=== PATIENT | male | born 1980 | race Caucasian/White ===

== ENCOUNTER 2017-12-29 10:31 | Observation (INO) | payer OTHER ==
[~2017-12-29] VITALS: Ht 177.8 cm; Wt 90.7 kg
[2017-12-29 12:02] LABS: ABSOLUTE BASOPHIL COUNT 0 /CUMM (0.0-0.2); ABSOLUTE EOSINOPHIL COUNT 0.1 /CUMM (0.0-0.7); ABSOLUTE GRANULOCYTE CT 6.3 /CUMM (1.4-6.5); ABSOLUTE LYMPH COUNT 1.2 /CUMM (1.2-3.4); ABSOLUTE MONOCYTE COUNT 0.6 /CUMM (0.10-0.60); BASOPHIL % 0.1 % (0.0-2.0); GRANULOCYTE % 76.8 % (42.2-75.2); HEMATOCRIT 41.6 % (42-52); MEAN CORPUSCULAR HGB 30.4 PG (27.0-31.0); MEAN CORPUSCULAR HGB CONC 34.2 G/DL (33.0-37.0); MEAN CORPUSCULAR VOLUME 89.1 FL (80.0-94.0); PLATELET COUNT 195 /CUMM (130-400); RBC DISTRIBUTION WIDTH 12.9 % (11.5-14.5); RED BLOOD CELL CT 4.67 /CUMM (4.70-6.10); WHITE BLOOD CELL COUNT 8.1 /CUMM (4.8-10.8)
--- NOTE | 2017-12-29 12:27 | CT SCAN REPORT ---
EXAMINATION: CT ABDOMEN AND PELVIS WITHOUT CONTRAST CLINICAL INFORMATION: Right flank pain wrapping around to the abdomen. Evaluate for kidney stone. COMPARISON: None TECHNIQUE: Multidetector volumetric imaging was performed from the superior aspect of the liver through the pubic symphysis. Sagittal and coronal reformatted images were obtained on the technologist's workstation. DLP: 366 mGy-cm FINDINGS: LUNG BASES: The visualized lung bases are unremarkable. LIVER, GALLBLADDER, AND BILIARY TREE: The liver is normal in size, shape, and attenuation. No focal hepatic lesion or biliary ductal dilatation is present. The gallbladder is unremarkable with no evidence of radiopaque gallstones, gallbladder wall thickening, or obvious pericholecystic inflammatory changes. PANCREAS: Unremarkable. SPLEEN: Unremarkable. ADRENAL GLANDS: Unremarkable. KIDNEYS AND URETERS: The kidneys are normal in size, shape, and attenuation. No hydronephrosis, hydroureter, or calculi seen. No perinephric stranding. BLADDER: Unremarkable. GASTROINTESTINAL TRACT: The stomach is unremarkable. The small bowel is normal in caliber. There is no obstruction. The appendix is distended, measuring up to 1.2 cm in thickness. There is prominent adjacent inflammation. No free air or fluid collection. ABDOMINAL WALL: No significant hernia is appreciated. LYMPH NODES: Normal. VASCULAR: Unremarkable. PELVIC VISCERA: The prostate and seminal vesicles are unremarkable. OSSEOUS STRUCTURES: No acute or suspicious osseous abnormality. Mild multilevel degenerative changes of the spine. IMPRESSION: Acute appendicitis. No free air or fluid collection. No hydronephrosis or nephrolithiasis. This critical result was discussed with YANIRA Hugo by telephone at 12/29/2017 12:23 PM and it was ascertained that the content and urgency of the report was understood at the time of direct communication.
[2017-12-29 12:49] LABS: PT 12.4 SEC (9.4-12.5); PTT 29 SEC (25-37)
--- NOTE | 2017-12-29 13:34 | ED GI/GU/ABDOMINAL COMPLAINT ---
History of Present Illness General Chief Complaint: Abdominal Pain/Flank Pain Stated Complaint: ABD PAIN Source: patient Exam Limitations: no limitations Vital Signs & Intake/Output Vital Signs & Intake/Output Vital Signs Date Time Temp Pulse Resp B/P B/P Pulse O2 O2 Flow FiO2 Mean Ox Delivery Rate 12/29 1412 99.2 96 21 137/92 98 Room Air Room Air 12/29 1120 98 Room Air Room Air 12/29 1031 98.7 104 18 151/92 98 Room Air Room Air Allergies Coded Allergies: No Known Allergies (07/03/16) Reconcile Medications Sertraline HCl 50 MG TABLET 1 TAB PO QHS DEPRESSION (Reported) Triage Note: PT TO ED WITH C/O RIGHT FLANK PAIN SINCE THURSDAY, ? KIDNEY STONE, "I DON'T HAVE ANY HISTORY OF KIDNEY STONES, BUT I HAVE BEEN DRINKING ALOT OF WATER, TAKING IBUPROFEN 800MG FOR THE PAIN". Triage Nurses Notes Reviewed? yes Onset: Abrupt Duration: day(s): Timing: recent history Quality/Severity: moderate, sharpness Location: generalized abdomen Radiation: no radiation Activities at Onset: none Prior Abdominal Problems: none No Modifying Factors: none HPI: 37-year-old male comes into the emergency room with right-sided abdominal pain and right-sided flank pain. Symptoms began about 5 days ago. Pain wraps around to the right side of his abdomen from his back. Denies any vomiting but has a low-grade fever that he admits to. Denies any fever chills. Denies any vomiting. Denies any other system symptoms. Comes in for further evaluation. Past History Travel History Traveled to [place] past 21 day No Medical History Any Pertinent Medical History? see below for history Neurological: NONE EENT: NONE Cardiovascular: NONE Respiratory: NONE Gastrointestinal: NONE Hepatic: NONE Renal: NONE Musculoskeletal: NONE Psychiatric: depression Endocrine: NONE Blood Disorders: NONE Cancer(s): NONE LAUNDRY AID/Reproductive: NONE Surgical History Surgical History: right upper premolar drilled Psychosocial History What is your primary language Ukrainian Tobacco Use: Never used ETOH Use: occasional use Illicit Drug Use: denies illicit drug use Family History Hx Contributory? No Review of Systems Review of Systems Constitutional: Reports: no symptoms. EENTM: Reports: no symptoms. Respiratory: Reports: no symptoms. Cardiovascular: Reports: no symptoms. GI: Reports: see HPI. Genitourinary: Reports: see HPI. Musculoskeletal: Reports: no symptoms. Skin: Reports: no symptoms. Neurological/Psychological: Reports: no symptoms. Hematologic/Endocrine: Reports: no symptoms. Immunologic/Allergic: Reports: no symptoms. All Other Systems: Reviewed and Negative Physical Exam Physical Exam General Appearance: well developed/nourished, no apparent distress, alert, awake Head: atraumatic, normal appearance Eyes: Bilateral: normal appearance. Ears, Nose, Throat, Mouth: hearing grossly normal, moist mucous membrane Neck: normal inspection Respiratory: normal breath sounds, no respiratory distress Cardiovascular: regular rate/rhythm Gastrointestinal: soft, tenderness Back: normal inspection Extremities: normal range of motion Neurologic/Psych: awake, alert, oriented x 3 Skin: intact, normal color Core Measures ACS in differential dx? No Sepsis Present: No Sepsis Focused Exam Completed? No Progress Differential Diagnosis: appendicitis, cholecystitis, diverticulitis, ureterolithiasis, UTI/pyelo Plan of Care: Orders Procedure Date/time Status TYPE & SCREEN (NOT X-MATCH) 12/29 1249 Complete Add-on Test (ER Only) 12/29 1232 Active PARTIAL THROMBOPLASTIN TIME 12/29 1136 Complete PROTHROMBIN TIME 12/29 1136 Complete COMPREHENSIVE METABOLIC PANEL 12/29 1119 Complete CBC WITHOUT DIFFERENTIAL 12/29 1119 Complete URINALYSIS 12/29 1042 Complete Laboratory Tests 12/29/17 1136: Anion Gap 10, Estimated GFR > 60, BUN/Creatinine Ratio 14.4, Glucose 91, Calcium 9.2, Total Bilirubin 0.7, AST 20, ALT 40, Alkaline Phosphatase 49, Total Protein 6.7, Albumin 3.7, Globulin 3.0, Albumin/Globulin Ratio 1.2, PT 12.4, INR 1.14, APTT 29, CBC w Diff NO MAN DIFF REQ, RBC 4.67 L, MCV 89.1, MCH 30.4, MCHC 34.2, RDW 12.9, MPV 10.0, Gran % 76.8 H, Lymphocytes % 14.8 L, Monocytes % 7.3, Eosinophils % 1.0, Basophils % 0.1, Absolute Granulocytes 6.3, Absolute Lymphocytes 1.2, Absolute Monocytes 0.6, Absolute Eosinophils 0.1, Absolute Basophils 0 12/29/17 1040: Urine Color YEL, Urine Clarity CLEAR, Urine pH 6.0, Ur Specific [place] 1.025, Urine Protein NEG, Urine Ketones NEG, Urine Nitrite NEG, Urine Bilirubin NEG, Urine Urobilinogen 0.2, Ur Leukocyte Esterase NEG, Ur Microscopic EXAM NOT REQUIRED, Urine Hemoglobin NEG, Urine Glucose NEG Diagnostic Imaging: Viewed by Me: CT Scan. Discussed w/RAD: CT Scan. Radiology Impression: PATIENT: DONNIE CELESTIN PRESENT AGE: 37 PATIENT ACCOUNT NO: [id number] : 80 LOCATION: [facility] ORDERING PHYSICIAN: Jarad DOYLE SERVICE DATE: 12/29/17 EXAM TYPE: CAT - CT ABD & PELVIS W/O IV CONTRAS EXAMINATION: CT ABDOMEN AND PELVIS WITHOUT CONTRAST CLINICAL INFORMATION: Right flank pain wrapping around to the abdomen. Evaluate for kidney stone. COMPARISON: None TECHNIQUE: Multidetector volumetric imaging was performed from the superior aspect of the liver through the pubic symphysis. Sagittal and coronal reformatted images were obtained on the technologist's workstation. DLP: 366 mGy-cm FINDINGS: LUNG BASES: The visualized lung bases are unremarkable. LIVER, GALLBLADDER, AND BILIARY TREE: The liver is normal in size, shape, and attenuation. No focal hepatic lesion or biliary ductal dilatation is present. The gallbladder is unremarkable with no evidence of radiopaque gallstones, gallbladder wall thickening, or obvious pericholecystic inflammatory changes. PANCREAS: Unremarkable. SPLEEN: Unremarkable. ADRENAL GLANDS: Unremarkable. KIDNEYS AND URETERS: The kidneys are normal in size, shape, and attenuation. No hydronephrosis, hydroureter, or calculi seen. No perinephric stranding. BLADDER: Unremarkable. GASTROINTESTINAL TRACT: The stomach is unremarkable. The small bowel is normal in caliber. There is no obstruction. The appendix is distended, measuring up to 1.2 cm in thickness. There is prominent adjacent inflammation. No free air or fluid collection. ABDOMINAL WALL: No significant hernia is appreciated. LYMPH NODES: Normal. VASCULAR: Unremarkable. PELVIC VISCERA: The prostate and seminal vesicles are unremarkable. OSSEOUS STRUCTURES: No acute or suspicious osseous abnormality. Mild multilevel degenerative changes of the spine. IMPRESSION: Acute appendicitis. No free air or fluid collection. No hydronephrosis or nephrolithiasis. This critical result was discussed with YANIRA Hugo by telephone at 12/29/2017 12:23 PM and it was ascertained that the content and urgency of the report was understood at the time of direct communication. DICTATED BY: Sammy Lama MD DATE/TIME DICTATED:12/29/171218 FINISHING MACHINE OPERATOR:CELI DATE/TIME TRANSCRIBED:12/29/171218 CONFIDENTIAL, DO NOT COPY WITHOUT APPROPRIATE AUTHORIZATION. <Electronically signed in Other Vendor System> SIGNED BY: Kelby CONN,Sammy 12/29/17 1227 Initial ED EKG: none Departure Departure Disposition: STILL A PATIENT Condition: Stable Clinical Impression Primary Impression: Acute appendicitis Referrals: Lennox CONN,Satish Siddiqui (PCP/Family) Departure Forms: Customer Survey General Discharge Information OR/GI Note Spoke With: Jayce CONN,Tac[place] N. ED Treatment Decision: DONNIE CELESTIN requires urgent operative management or an emergent procedure that cannot be performed in the Emergency Room setting. Transport To: [facility] Critical Care Note Critical Care Note Critical Care Time: 30-74 min (35)
[2017-12-29] MEDS ORDERED: SERTRALINE HCL50 MG PO (13:57)
--- NOTE | 2017-12-29 17:56 | History & Physical Pre-Op ---
General Information and HPI MD Statement: I have seen and personally examined DONNIE CELESTIN and documented this H&P. The patient is a 37 year old M who presented with a patient stated chief complaint of []. History of Present Illness: CC: abdominal pain HPI: 37-year-old nonsmoker nondiabetic on medication for some anxiety otherwise healthy 5 days ago mid afternoon started having some right lower quadrant pain he thought was a kidney stone like his brother had it persisted little bit of sweats no fevers little bit of nausea no vomiting no recent flulike symptoms or sore throat no family history of acute appendicitis patient's constant right lower quadrant no dysuria no hematuria doesn't radiate not worse on movement liters with analgesics. Otherwise no changes bowel habits, weight or appetite. I've reviewed the [facility]. No history of GERD, PUD, bleeding problems, heart disease or issues with anesthesia. Family history positive for depression hypertension hyperlipidemia Allergies/Medications Allergies: Coded Allergies: No Known Allergies (07/03/16) Home Med list Sertraline HCl 50 MG TABLET 1 TAB PO QHS DEPRESSION (Reported) Past History Medical History Neurological: NONE EENT: NONE Cardiovascular: NONE Respiratory: NONE Gastrointestinal: NONE Hepatic: NONE Renal: NONE Musculoskeletal: NONE Psychiatric: depression Endocrine: NONE Blood Disorders: NONE Cancer(s): NONE TELEVISION REPAIRER/Reproductive: NONE Surgical History Pertinent Surgical History: right upper premolar drilled Past Family/Social History Psychosocial History ETOH Use: occasional use Illicit Drug Use: denies illicit drug use Review of Systems Review of Systems: Constitutional: No fever, sweats or weight loss ENMT: No sore throat Cardiovascular: No chest pain, palpitations or leg swelling Respiratory: No shortness of breath, cough, or sputum or dyspnea on exertion GI: No GERD or bleeding per rectum : No dysuria or hematuria Musculoskeletal: No new muscle weakness, bone or joint pain Skin / Breast: No jaundice, rashes or itching Psychiatric: No history of drug or alcohol abuse no depression or anxiety Hematologic / lymphatic system: No problems with excessive bleeding, bruising, or blood clots Exam & Diagnostic Data Last 24 Hrs of Vital Signs/I&O I rev Vital Signs Date Time Temp Pulse Resp B/P B/P Pulse O2 O2 Flow FiO2 Mean Ox Delivery Rate 12/29 1632 98.9 95 20 141/82 96 Room Air Room Air 12/29 1412 99.2 96 21 137/92 98 Room Air Room Air 12/29 1120 98 Room Air Room Air 12/29 1031 98.7 104 18 151/92 98 Room Air Room Air I rev Intake & Output 12/29 1600 12/29 0800 12/29 0000 Intake Total 100 Output Total Balance 100 Intake, IV 100 Patient 200 lb Weight Weight Reported by Patient Measurement Method Physical Exam: Constitutional: pleasant, no acute distress, conversant Eyes: sclera anicteric ENMT: ears and nose atraumatic, moist mucous membranes, good dentition, no lip lesions Neck: Supple, trachea is midline, no cervical or supraclavicular adenopathy and no palpable thyromegaly Cardiovascular: S1, S2, no murmurs, no peripheral edema Respiratory: clear to auscultation with normal respiratory effort and no intercostal retractions GI: abdomen soft, McBurney's point tenderness, nondistended, no palpable hepatosplenomegaly Extremities / lymphatics: symmetrically warm, free range of motion no peripheral edema, no cervical, supraclavicular, axillary, or inguinal adenopathy Musculoskeletal: Did not evaluate gait and station, no digital cyanosis, good muscle strength and tone no atrophy, motor grossly 5 out of 5 throughout Skin: no jaundice, no rashes warm, nondiaphoretic, no areas of erythema or induration Psychiatric: mood and affect are appropriate and alert and oriented to person place and time Last 24 Hrs of Labs/Edy: I rev Laboratory Tests 12/29/17 1136: Anion Gap 10, Estimated GFR > 60, BUN/Creatinine Ratio 14.4, Glucose 91, Calcium 9.2, Total Bilirubin 0.7, AST 20, ALT 40, Alkaline Phosphatase 49, Total Protein 6.7, Albumin 3.7, Globulin 3.0, Albumin/Globulin Ratio 1.2, PT 12.4, INR 1.14, APTT 29, CBC w Diff NO MAN DIFF REQ, RBC 4.67 L, MCV 89.1, MCH 30.4, MCHC 34.2, RDW 12.9, MPV 10.0, Gran % 76.8 H, Lymphocytes % 14.8 L, Monocytes % 7.3, Eosinophils % 1.0, Basophils % 0.1, Absolute Granulocytes 6.3, Absolute Lymphocytes 1.2, Absolute Monocytes 0.6, Absolute Eosinophils 0.1, Absolute Basophils 0 12/29/17 1040: Urine Color YEL, Urine Clarity CLEAR, Urine pH 6.0, Ur Specific [place] 1.025, Urine Protein NEG, Urine Ketones NEG, Urine Nitrite NEG, Urine Bilirubin NEG, Urine Urobilinogen 0.2, Ur Leukocyte Esterase NEG, Ur Microscopic EXAM NOT REQUIRED, Urine Hemoglobin NEG, Urine Glucose NEG Assessment/Plan Assessment/Plan: I reviewed the CT scan on PACS myself there is inflammation in the right lower quadrant inferior to the cecum the appendix is not clearly demarcated entirely there is no free air. Impression is acute appendicitis. I explained to the patient that this is a potentially life-threatening infection for which I recommend an appendectomy. I feel antibiotics often alone are not enough and sometimes there is an occult malignancy. The severity of infection is related to the chance of perforation which usually increases after about 24 hours and he is presenting well past that it doesn't appear perforated clinically and on the imaging but it may be a walled off localized perf /phlegmon. Depending on what we find intraoperatively they may be discharged the same day or more likely in him may need to stay for more IV antibiotics, at depends. I also discussed the possibility of a postoperative infection whether superficial or deep, this is also related to the initial severity and may also appear even a week later after an initial interval of well-being during the recovery. I explained the operation we usually do it laparoscopically rarely converting to open, depending on the amount of inflammation and whether the anatomy is very unusual all to avoid inadvertent injury to surrounding surrounding structures such as bowel and blood vessels and ureter. We also discussed the potential risks, benefits and alternatives to the procedure and surgery in general, issues that included but were not limited to, anesthetic risks hemorrhage requiring transfusion, the risk of transfusion itself, infection, heart attack, stroke, . As Ranked By This Provider Problem List: 1. Acute appendicitis
[2017-12-29 22:21] VITALS: BP 140/80
--- NOTE | 2017-12-29 22:31 | PN- General Surgery ---
Subjective Subjective: POST-OP NOTE Reports slight nausea earlier. No pain at the moment. No dizziness. No shortness of breath. Hasn't voided yet post-op. Objective Vital Signs and I&Os Vital Signs Date Time Temp Pulse Resp B/P B/P Pulse O2 O2 Flow FiO2 Mean Ox Delivery Rate 12/291 98.1 87 18 140/80 99 12/29 1632 98.9 95 20 141/82 96 Room Air Room Air 12/29 1412 99.2 96 21 137/92 98 Room Air Room Air 12/29 1120 98 Room Air Room Air 12/29 1031 98.7 104 18 151/92 98 Room Air Room Air Intake & Output 12/29 1600 12/29 0800 12/29 0000 12/28 1600 12/28 0800 12/28 0000 Intake Total 100 Output Total Balance 100 Intake, IV 100 Patient 200 lb Weight Weight Reported by Patient Measurement Method Physical Exam: General - alert & oriented x 3. comfortable. no acute distress. Lungs - clear bilaterally. no w/r/r. Cardiac - s1s2. reg. Abdomen - soft. dressings c/d/i. Extremities - warm bilaterally. no c/c/e. calves soft and nontender b/l. Current Medications: Current Medications Sig/Jace Start time Last Medication Dose Route Stop Time Status Admin Acetaminophen 1,000 MG Q6H 12/29 2014 AC N/A 1 UNIT IV 12/30 1429 Ampicillin Sodium/ 3,000 MG Q6 12/29 2359 AC Sulbactam Sodium IV Sodium Chloride 100 ML Ampicillin Sodium/ 3,000 MG ONCE ONE 12/29 1245 DC 12/29 Sulbactam Sodium IV 12/29 1314 1300 Sodium Chloride 100 ML Ampicillin Sodium/ 0 .STK-MED ONE 12/29 1240 DC Sulbactam Sodium .ROUTE Dextrose/Sodium 1,000 ML Q10H 12/29 2014 AC 12/29 Chloride IV 2203 Heparin Sodium 5,000 UNIT Q8 12/30 0600 AC (Porcine) SC Ketorolac 0 .STK-MED ONE 12/29 1136 DC Tromethamine IM Ketorolac 60 MG ONCE ONE 12/29 1130 DC 12/29 Tromethamine IM 12/29 1131 1143 Morphine Sulfate 2 MG Q4-6 PRN PRN 12/29 2014 AC IV Ondansetron HCl 4 MG Q6P PRN 12/29 2014 AC IV Oxycodone HCl 5 MG Q4-6 PRN PRN 12/29 2014 AC PO Oxycodone HCl 10 MG Q4-6 PRN PRN 12/29 2014 AC PO Results Last 48 Hours of Labs: Laboratory Tests 12/29 12/29 1136 1040 Chemistry Sodium (137 - 145 mmol/L) 142 Potassium (3.5 - 5.1 mmol/L) 4.3 Chloride (98 - 107 mmol/L) 105 Carbon Dioxide (22 - 30 mmol/L) 28 Anion Gap (5 - 16) 10 BUN (9 - 20 mg/dL) 13 Creatinine (0.7 - 1.2 mg/dL) 0.9 Estimated GFR (>60 ml/min) > 60 BUN/Creatinine Ratio (7 - 25 %) 14.4 Glucose (65 - 99 mg/dL) 91 Calcium (8.4 - 10.2 mg/dL) 9.2 Total Bilirubin (0.2 - 1.3 mg/dL) 0.7 AST (17 - 59 U/L) 20 ALT (21 - 72 U/L) 40 Alkaline Phosphatase (< 127 U/L) 49 Total Protein (6.3 - 8.2 g/dL) 6.7 Albumin (3.5 - 5.0 g/dL) 3.7 Globulin (1.9 - 4.2 gm/dL) 3.0 Albumin/Globulin Ratio (1.1 - 2.2 %) 1.2 Coagulation PT (9.4 - 12.5 SEC) 12.4 INR (0.90 - 1.17) 1.14 APTT (25 - 37 SEC) 29 Hematology CBC w Diff NO MAN DIFF REQ WBC (4.8 - 10.8 /CUMM) 8.1 RBC (4.70 - 6.10 /CUMM) 4.67 L Hgb (14.0 - 18.0 G/DL) 14.2 Hct (42 - 52 %) 41.6 L MCV (80.0 - 94.0 FL) 89.1 MCH (27.0 - 31.0 PG) 30.4 MCHC (33.0 - 37.0 G/DL) 34.2 RDW (11.5 - 14.5 %) 12.9 Plt Count (130 - 400 /CUMM) 195 MPV (7.4 - 10.4 FL) 10.0 Gran % (42.2 - 75.2 %) 76.8 H Lymphocytes % (20.5 - 51.1 %) 14.8 L Monocytes % (1.7 - 9.3 %) 7.3 Eosinophils % (0 - 5 %) 1.0 Basophils % (0.0 - 2.0 %) 0.1 Absolute Granulocytes (1.4 - 6.5 /CUMM) 6.3 Absolute Lymphocytes (1.2 - 3.4 /CUMM) 1.2 Absolute Monocytes (0.10 - 0.60 /CUMM) 0.6 Absolute Eosinophils (0.0 - 0.7 /CUMM) 0.1 Absolute Basophils (0.0 - 0.2 /CUMM) 0 Urines Urine Color (YEL,AMB,STR) YEL Urine Clarity (CLEAR) CLEAR Urine pH (5.0 - 8.0) 6.0 Ur Specific [place] (1.001 - 1.035) 1.025 Urine Protein (NEG,<30 MG/DL) NEG Urine Ketones (NEG) NEG Urine Nitrite (NEG) NEG Urine Bilirubin (NEG) NEG Urine Urobilinogen (0.1 - 1.0 EU/dl) 0.2 Ur Leukocyte Esterase (NEG) NEG Ur Microscopic EXAM NOT REQUIRED Urine Hemoglobin (NEG) NEG Urine Glucose (N MG/DL) NEG Assessment/Plan Assessment/Plan This 37 year old male is POD#0 s/p laparoscopic appendectomy for perforated appendix try clears as tolerated continue iv unasyn, which will likely be transitioned to oral antibiotics when discharged pain control as ordered hep sc - dvt ppx oob/ambulation f/u labs in the morning 23hr observation status, however this will likely need to be extended or transitioned to admission given his appendix was perforated d/w Core Measures Venous Thromboembolism VTE Risk Factors Surgery No Mechanical VTE Prophylaxis d/t N/A MechProphylax Ordered No VTE Pharm Prophylaxis d/t NA PharmProphylax ordered
[2017-12-30 06:24] VITALS: BP 100/68
--- NOTE | 2017-12-30 07:52 | PN- General Surgery ---
See Addendum Subjective Subjective: Reports some sweats overnight. Currently no nausea. To try clears this morning. No dizziness. No shortness of breath. No chest pains. Objective Vital Signs and I&Os Vital Signs Date Time Temp Pulse Resp B/P B/P Pulse O2 O2 Flow FiO2 Mean Ox Delivery Rate 12/31 623 97.9 75 20 100/68 97 Room Air 12/29 2221 98.1 87 18 140/80 99 12/29 1632 98.9 95 20 141/82 96 Room Air Room Air 12/29 1412 99.2 96 21 137/92 98 Room Air Room Air 12/29 1120 98 Room Air Room Air 12/29 1031 98.7 104 18 151/92 98 Room Air Room Air Intake & Output 12/30 0812/30 0000 12/29 1600 12/29 0800 12/29 0000 12/28 1600 Intake Total 1040 250 100 Output Total 700 Balance 340 250 100 Intake, IV 800 200 100 Intake, Oral 240 50 Output, Urine 700 Patient 200 lb 200 lb Weight Weight Reported by Patient Measurement Method Physical Exam: General - alert & oriented x 3. comfortable. Lungs - clear bilaterally. no w/r/r. Cardiac - s1s2. reg. Abdomen - soft. dressings c/d/i. expected mandy-incisional tenderness. Extremities - warm bilaterally. no c/c/e. calves soft and nontender b/l. Current Medications: Current Medications Sig/Jace Start time Last Medication Dose Route Stop Time Status Admin Acetaminophen 1,000 MG Q6H 12/29 2014 12/30 N/A 1 UNIT IV 12/30 1429 0214 Ampicillin Sodium/ 3,000 MG Q6 12/29 2359 12/30 Sulbactam Sodium IV 0546 Sodium Chloride 100 ML Ampicillin Sodium/ 3,000 MG ONCE ONE 12/29 1245 DC 12/29 Sulbactam Sodium IV 12/29 1314 1300 Sodium Chloride 100 ML Ampicillin Sodium/ 0 .STK-MED ONE 12/29 1240 DC Sulbactam Sodium .ROUTE Dextrose/Sodium 1,000 ML Q10H 12/29 Chloride IV 2203 Diphenhydramine HCl 50 MG .STK-MED ONE 12/29 2053 DC IM 12/29 2054 Heparin Sodium 5,000 UNIT Q8 12/30 0600 AC 12/30 (Porcine) SC 0546 Ketorolac 0 .STK-MED ONE 12/29 1136 DC Tromethamine IM Ketorolac 60 MG ONCE ONE 12/29 1130 DC 12/29 Tromethamine IM 12/29 1131 1143 Morphine Sulfate 2 MG Q4-6 PRN PRN 12/29 2014 AC IV Ondansetron HCl 4 MG Q6P PRN 12/29 2014 AC IV Oxycodone HCl 5 MG Q4-6 PRN PRN 12/29 2014 AC PO Oxycodone HCl 10 MG Q4-6 PRN PRN 12/29 2014 AC PO Results Last 48 Hours of Labs: Laboratory Tests 12/30 12/29 0617 1136 Chemistry Sodium (137 - 145 mmol/L) Pending 142 Potassium (3.5 - 5.1 mmol/L) Pending 4.3 Chloride (98 - 107 mmol/L) Pending 105 Carbon Dioxide (22 - 30 mmol/L) Pending 28 Anion Gap (5 - 16) Pending 10 BUN (9 - 20 mg/dL) Pending 13 Creatinine (0.7 - 1.2 mg/dL) Pending 0.9 Estimated GFR (>60 ml/min) > 60 BUN/Creatinine Ratio (7 - 25 %) Pending 14.4 Glucose (65 - 99 mg/dL) 91 Calcium (8.4 - 10.2 mg/dL) 9.2 Total Bilirubin (0.2 - 1.3 mg/dL) 0.7 AST (17 - 59 U/L) 20 ALT (21 - 72 U/L) 40 Alkaline Phosphatase (< 127 U/L) 49 Total Protein (6.3 - 8.2 g/dL) 6.7 Albumin (3.5 - 5.0 g/dL) 3.7 Globulin (1.9 - 4.2 gm/dL) 3.0 Albumin/Globulin Ratio (1.1 - 2.2 %) 1.2 Coagulation PT (9.4 - 12.5 SEC) 12.4 INR (0.90 - 1.17) 1.14 APTT (25 - 37 SEC) 29 Hematology CBC w Diff Pending NO MAN DIFF REQ WBC (4.8 - 10.8 /CUMM) Pending 8.1 RBC (4.70 - 6.10 /CUMM) Pending 4.67 L Hgb (14.0 - 18.0 G/DL) Pending 14.2 Hct (42 - 52 %) Pending 41.6 L MCV (80.0 - 94.0 FL) Pending 89.1 MCH (27.0 - 31.0 PG) Pending 30.4 MCHC (33.0 - 37.0 G/DL) Pending 34.2 RDW (11.5 - 14.5 %) Pending 12.9 Plt Count (130 - 400 /CUMM) Pending 195 MPV (7.4 - 10.4 FL) Pending 10.0 Gran % (42.2 - 75.2 %) 76.8 H Lymphocytes % (20.5 - 51.1 %) 14.8 L Monocytes % (1.7 - 9.3 %) 7.3 Eosinophils % (0 - 5 %) 1.0 Basophils % (0.0 - 2.0 %) 0.1 Absolute Granulocytes (1.4 - 6.5 /CUMM) 6.3 Absolute Lymphocytes (1.2 - 3.4 /CUMM) 1.2 Absolute Monocytes (0.10 - 0.60 /CUMM) 0.6 Absolute Eosinophils (0.0 - 0.7 /CUMM) 0.1 Absolute Basophils (0.0 - 0.2 /CUMM) 0 12/29 1040 Urines Urine Color (YEL,AMB,STR) YEL Urine Clarity (CLEAR) CLEAR Urine pH (5.0 - 8.0) 6.0 Ur Specific [place] (1.001 - 1.035) 1.025 Urine Protein (NEG,<30 MG/DL) NEG Urine Ketones (NEG) NEG Urine Nitrite (NEG) NEG Urine Bilirubin (NEG) NEG Urine Urobilinogen (0.1 - 1.0 EU/dl) 0.2 Ur Leukocyte Esterase (NEG) NEG Ur Microscopic EXAM NOT REQUIRED Urine Hemoglobin (NEG) NEG Urine Glucose (N MG/DL) NEG Assessment/Plan Assessment/Plan This 37 year old male is POD#1 s/p laparoscopic appendectomy for perforated appendix try clears as tolerated continue iv unasyn, which will likely be transitioned to oral antibiotics when discharged pain control as ordered hep sc - dvt ppx oob/ambulation f/u labs 23hr observation status, however this will likely need to be extended or transitioned to admission given his appendix was perforated d/w Core Measures Venous Thromboembolism VTE Risk Factors Surgery No Mechanical VTE Prophylaxis d/t N/A MechProphylax Ordered No VTE Pharm Prophylaxis d/t NA PharmProphylax ordered
[2017-12-30 08:14] LABS: ABSOLUTE BASOPHIL COUNT 0 /CUMM (0.0-0.2); ABSOLUTE EOSINOPHIL COUNT 0 /CUMM (0.0-0.7); ABSOLUTE GRANULOCYTE CT 9.2 /CUMM (1.4-6.5); ABSOLUTE LYMPH COUNT 0.7 /CUMM (1.2-3.4); ABSOLUTE MONOCYTE COUNT 0.5 /CUMM (0.10-0.60); BASOPHIL % 0.1 % (0.0-2.0); EOSINOPHIL % 0 % (0-5); HEMATOCRIT 39.3 % (42-52); MEAN CORPUSCULAR HGB CONC 33.1 G/DL (33.0-37.0); MEAN CORPUSCULAR VOLUME 90.7 FL (80.0-94.0); MEAN PLATELET VOLUME 10.7 FL (7.4-10.4); PLATELET COUNT 178 /CUMM (130-400); RBC DISTRIBUTION WIDTH 13.1 % (11.5-14.5); RED BLOOD CELL CT 4.33 /CUMM (4.70-6.10); WHITE BLOOD CELL COUNT 10.3 /CUMM (4.8-10.8)
[2017-12-30 09:12] LABS: GRANULOCYTE % 88.9 % (42.2-75.2)
[2017-12-30 14:29] VITALS: BP 124/62
--- NOTE | 2017-12-30 15:07 | Operative Report ---
Operative/Inv Procedure Report Surgery Date: 12/29/17 Name of Procedure: Laparoscopic appendectomy Pre-Operative Diagnosis: Acute appendicitis, ruptured Post-Operative Diagnosis: Same, walled off Estimated Blood Loss: scant Surgeon/Radiographer: Jayce CONN,Tacos DOYLE Anesthesia: general endotracheal tube Operative/Procedure Note Note: Patient was placed on the OR table in the supine position. After successful induction of general anesthesia the patient's abdomen was prepped clipped and draped in the usual sterile fashion The left arm was tucked. Local anesthetic was injected at the top of the umbilicus and entry into the peritoneum was established via the open Mcmillan technique: a one cm curved incision was made at the top of the umbilicus, the linea alba was secured between 2 pediatric Aravind clamps and incised vertically, 0-Vicryl stay sutures were placed on each side and then while retracting upwards, the peritoneal layer was entered sharply, then through that small opening, using an S retractor acting like a shoehorn, a 10 mm blunt trocar was inserted obliquely to the right and secured with the stay sutures. The gas was turned on to maximum of 15 mm, two 5 mm dissecting ports were then inserted, one suprapubic and one left lower quadrant, laterally. We used a local anesthetic needle to guide their trajectories, particular attention was given to avoid injury to the bowel, the bladder and the epigastric vessels. Then our attention was directed to the right lower quadrant, the small bowel was swept superiorly and medially, revealing the base of the cecum. An inflamed appendix was then mobilized by it from the lateral and inferior peritoneal attachments using cautery, here there was a phlegmon / contained perforation pus which we were able to control and aspirate and irrigate. Using a combination of a [place] dissector, peanut dissector and a Beth clamp, a window was developed between the mesoappendix and the base of the appendix. This window is then used to divide the appendix at the base and the mesoappendix with a linear stapling device, separately, using an intestinal cartridge for the appendix and a vascular cartridge for the mesoappendix; the division of the appendix includes a small flange of cecal base. We had to use more firings of tyson 2 separate the inflamed appendix and surrounding inflamed fat from the cecum and terminal ileum especially at Treve's fold, care was taken to avoid narrowing the bowel. The appendix is lowered into an Endobag and set aside. The staple lines were checked for bleeding and small oozing was controlled with light zaps of the cautery. We deliberately irrigate the area including up by the liver and down in the pelvis, several rounds, checking the staple lines and each time to make sure that there is no ongoing bleeding. Next the instruments and the trochars and Endobag are removed, letting the gas out. We closed the umbilical fascial incision with a [id number] 0 vicryl suture, then the 3 skin incisions are closed with multiple interrupted subcuticular 4-0 Biosyn sutures, 3 for the umbilical, 1 each for the smaller ones, then covered with Mastisol, Steri-Strips and Band-Aids. EBL minimal Lap and sponge and sponge counts: correct Wound expectancy: infected IV fluids: crystalloid Complications: none Patient tolerated the procedure well was awakened and extubated and returned to the recovery room in satisfactory condition.
[2017-12-30 22:20] VITALS: BP 118/80
[2017-12-31 06:42] VITALS: BP 100/64
[2017-12-31 08:10] LABS: ABSOLUTE BASOPHIL COUNT 0 /CUMM (0.0-0.2); ABSOLUTE EOSINOPHIL COUNT 0 /CUMM (0.0-0.7); ABSOLUTE GRANULOCYTE CT 5.2 /CUMM (1.4-6.5); ABSOLUTE LYMPH COUNT 2.9 /CUMM (1.2-3.4); ABSOLUTE MONOCYTE COUNT 0.5 /CUMM (0.10-0.60); BASOPHIL % 0.2 % (0.0-2.0); EOSINOPHIL % 0.5 % (0-5); GRANULOCYTE % 60.2 % (42.2-75.2); HEMATOCRIT 37.5 % (42-52); MEAN CORPUSCULAR HGB 30.1 PG (27.0-31.0); MEAN CORPUSCULAR HGB CONC 33.3 G/DL (33.0-37.0); MEAN CORPUSCULAR VOLUME 90.3 FL (80.0-94.0); MEAN PLATELET VOLUME 10.1 FL (7.4-10.4); PLATELET COUNT 176 /CUMM (130-400); RBC DISTRIBUTION WIDTH 13.6 % (11.5-14.5); RED BLOOD CELL CT 4.15 /CUMM (4.70-6.10); WHITE BLOOD CELL COUNT 8.7 /CUMM (4.8-10.8)
--- NOTE | 2017-12-31 09:22 | PN- General Surgery ---
Subjective Subjective: Pt. states he fels well. Not taking any narcotics for pain. Passing flatus , had BM. Taking clears well without nausea. Objective Vital Signs and I&Os Vital Signs Date Time Temp Pulse Resp B/P B/P Pulse O2 O2 Flow FiO2 Mean Ox Delivery Rate 12/31 0642 97.9 69 20 100/64 97 Room Air 12/30 2220 98.3 75 20 118/80 97 12/30 1429 98.1 87 20 124/62 97 Intake & Output 12/31 1600 12/31 0800 12/31 0000 12/30 1600 12/30 0800 12/30 0000 Intake Total 7441 694 1290 1040 250 Output Total 484 872 9321 700 Balance 339 689 9322 340 250 Intake, IV 6025 031 9856 800 200 Intake, Oral 1440 240 50 Number 0 Bowel Movements Output, Urine 067 388 0378 700 Patient 200 lb Weight Alert, oriented, looks comfortable. Lungs clear bilat. Heart Regular Abdomen is soft, mildly distended, appropriately minimally tender. Port sites with dressings over are clean, dry, intact. Extr. without edema. Assessment/Plan Assessment/Plan s/p lap. appendectomy for perforated appendix POD#2. Progresing very well. Clinically looks well Abdominal exam as expected with minimal distention, no significanat tenderness. Has evidence of bowel fxn, passing flatus, has BM. Will advance to regular diet and hep lock IVF. WBC down to 8.7 from 10.3 Not requiring narcotics for pain control. likely discharge home today on oral Augmentin Will discuss with surgeon. Core Measures Venous Thromboembolism VTE Risk Factors Surgery No Mechanical VTE Prophylaxis d/t N/A MechProphylax Ordered No VTE Pharm Prophylaxis d/t NA PharmProphylax ordered
--- NOTE | 2017-12-31 09:30 | Patient Discharge Instructions ---
See Addendum Discharge Instructions General Discharge Information You were seen/treated for: acute appendicitis You had these procedures: laparoscopic appendix removal Watch for these problems: fevers greater than 101.5, redness or drainage from incisons, increasing pain Do not soak the wound: Yes Other wound care: keep dressings dry Diet Recommended Diet: regular Activity Full Activity/No Limits: Yes Activity Self Limited: Yes Other activity limits: do not lift more than 15 lbs Additional ACTIVITY Info: may do self care Acute Coronary Syndrome Inclusion Criteria At DC or during hospital stay patient has or had the following: ACS DIAGNOSIS No Discharge Core Measures Meds if any: Prescribed or Continued at Discharge JIA/ARB if EF <40% No Aspirin No Beta-Jessica No Statin No Meds if any: NOT Prescribed or Continued at Discharge Congestive Heart Failure Inclusion Criteria At DC or during hospital stay patient has or had the following: CHF DIAGNOSIS No Discharge Core Measures Meds if any: Prescribed or Continued at Discharge JIA/ARB for EF <40% No Meds if any: NOT Prescribed or Continued at Discharge Cerebrovascular accident Inclusion Criteria At DC or during hospital stay patient has or had the following: CVA/TIA Diagnosis No Discharge Core Measures Meds if any: Prescribed or Continued at Discharge Meds if any: NOT Prescribed or Continued at Discharge Venous thromboembolism Inclusion Criteria VTE Diagnosis No VTE Type NONE VTE Confirmed by (Test) NONE Discharge Core Measures - Per Current guidelines, there needs to be overlap - treatment for the first 5 days of Warfarin therapy. - If discharged on Warfarin prior to 5 days of - overlap therapy, the patient will need to be - assessed for post discharge needs including - *Post discharge parental anticoagulation - *Warfarin and/or parental anticoagulation education - *Follow up date to check INR post discharge At least 5 days overlap therapy as Inpatient No Meds if any: Prescribed or Continued at Discharge Note: Overlap Therapy is Warfarin and Anticoagulant Meds if any: NOT Prescribed or Continued at Discharge
[2017-12-31] MEDS ORDERED: AUGMENTIN 875-1 EACH PO (10:00)
== END 2017-12-31 12:58 ==
LOC: ERH 10:31 → PACUH 20:45 → 2NA 20:45 → ENRESERV 21:06 → ENTRNSPT 21:25 → EDTRNSPTSTS 21:29 → EDTRNSPT 21:29 → 2NA 21:33 → CMPTRNSPT 21:38 → ENPENDDIS 12-31 11:12 → 2NA 12-31 12:58
PROVIDERS: Nurse Practitioner; Physician Assistant; Physician Assistant Medical
DX: K35.80 Unspecified acute appendicitis (principal); F32.9 Major depressive disorder, single episode, unspecified
CPT/HCPCS: 36592; 74176; 81003; 82436; 96365; 96372; 96375; G0378; J0131; J1100; J1200; J1644; J1885; J2250; J2405; J2765; J3010; J7042